=== PATIENT | male | born 1960 | race Caucasian/White ===

== ENCOUNTER 2025-02-08 07:02 | Observation (INO) ==
--- NOTE | 2025-01-04 10:47 | PAT Medication Instructions ---
Medication Instructions Date of Service January 04, 2025 Home Medications albuterol sulfate 90 mcg/actuation aerosol inhaler 1 puff inhalation UD PRN Shortness Of Breath apixaban 5 mg tablet (Eliquis) 5 mg PO BID atorvastatin 80 mg tablet 80 mg PO QAM empagliflozin 25 mg tablet (Jardiance) 25 mg PO QAM fluticasone fur. 100 mcg-umeclid 62.5 mcg-vilant 25 mcg inhalat.powder (Trelegy Ellipta) 1 inh inhalation QAM losartan 25 mg tablet 25 mg PO QAM metformin 500 mg tablet 1,000 mg PO BID montelukast 10 mg tablet 10 mg PO HS ASK your prescriber and surgeon apixaban 5 mg tablet (Eliquis) 5 mg PO BID (From anesthesia perspective, apixaban/Eliquis is requested to be stopped 72 hours/3 days before surgery. Please check if okay with doctor that prescribes this to you) STOP taking 3 days before surgery empagliflozin 25 mg tablet (Jardiance) 25 mg PO QAM DO NOT take the morning of surgery losartan 25 mg tablet 25 mg PO QAM metformin 500 mg tablet 1,000 mg PO BID Take morning of surgery With a small sip of water, OTHERWISE NOTHING TO EAT OR DRINK AFTER MIDNIGHT: albuterol sulfate 90 mcg/actuation aerosol inhaler 1 puff inhalation UD PRN Shortness Of Breath (use if needed; please bring rescue inhaler with you to hospital day of surgery if possible) atorvastatin 80 mg tablet 80 mg PO QAM fluticasone fur. 100 mcg-umeclid 62.5 mcg-vilant 25 mcg inhalat.powder (Trelegy Ellipta) 1 inh inhalation QAM Take evening before surgery albuterol sulfate 90 mcg/actuation aerosol inhaler 1 puff inhalation UD PRN Shortness Of Breath (if needed) metformin 500 mg tablet 1,000 mg PO BID montelukast 10 mg tablet 10 mg PO HS Other Notes If you have any questions please call us at [phone] or [phone] or [phone] or [phone]
--- NOTE | 2025-01-11 13:03 | Anesthesiology Consultation ---
Date of Service January 11, 2025 Assessment & Plan (1) Encounter for pre-operative examination: - Check BSG DOS - Infectious disease screening: Per assessment on 01/11/25- No known recent infectious disease contacts or current infectious disease symptoms. - Outpatient joint assessment: Pt currently scheduled for inpatient pathway. If surgeon requests review for outpatient joint pathway, patient is not a recommended candidate for outpatient joint program from anesthesia standpoint based on available information. - Eliquis instructions: patient made aware that for neuraxial anesthesia, Eliquis needs to be held 72 hours prior to surgery. Patient voiced understanding/will check if okay with prescriber. Chart Review Chart Review: Acceptable Risk for Surgery and Patient seen in Pre Admission Testing Teaching & Discussion Pre-Anesthesia Teaching/Discussion Notes: Instructed NPO after midnight before surgery,except medications with 15 cc of water. Medication instructions provided according to the PAT guidelines. History Surgery Operation Date: 02/08/25 08:50 Proposed Procedures p Left Total Knee Arthroplasty - Cachorro Ac MD Height/Weight Height: 6 ft Weight: 147 kg Allergies Allergy/AdvReac Type Severity Reaction Status Date / Time Cephalosporins Allergy Unknown Skin Verified 01/11/25 09:38 blistering, swelling Medications Home Medications Medication Instructions Recorded Confirmed Last Taken albuterol sulfate 90 mcg/actuation 1 puff inhalation UD PRN Shortness 01/04/25 01/04/25 Unknown aerosol inhaler Of Breath apixaban 5 mg tablet (Eliquis) 5 mg PO BID 01/04/25 01/04/25 Unknown atorvastatin 80 mg tablet 80 mg PO QAM 01/04/25 01/04/25 Unknown empagliflozin 25 mg tablet 25 mg PO QAM 01/04/25 01/04/25 Unknown (Jardiance) fluticasone fur. 100 mcg-umeclid 1 inh inhalation QAM 01/04/25 01/04/25 Unknown 62.5 mcg-vilant 25 mcg inhalat.powder (Trelegy Ellipta) losartan 25 mg tablet 25 mg PO QAM 01/04/25 01/04/25 Unknown metformin 500 mg tablet 1,000 mg PO BID 01/04/25 01/04/25 Unknown montelukast 10 mg tablet 10 mg PO HS 01/04/25 01/04/25 Unknown Past Medical History Medical History Diabetes mellitus, type 2 NIDDM History of COPD History of diverticulitis History of hypertension Hx of deep venous thrombosis RLE DVTs (prior to 1999, ~2009, ~2022) Unknown cause for blood clots per patient Taking Eliquis Hx of hyperlipidemia Hx of sleep apnea Unable to use CPAP Hx pulmonary embolism DVT > PE (~2022) Currently on Eliquis Morbid obesity Exercise / Class Metabolic Activity III < 4 Walking/Shop/Light housework Past Surgical History Surgical History History of colon resection 2/2 to diverticulitis (5+ years) History of total right knee replacement Hx laparoscopic cholecystectomy Hx of anterior cruciate ligament tear reconstruction Right, "years ago" Hx of colonoscopy Past Anesthesia History No Family Hx of Anesthesia Complications and Other (Awareness with Right TKA) History of PONV No Hx of PONV and No Hx of Motion Sickness Social History Smoking Status: Current every day smoker Smoking cigarettes per day: 20 cigs/day Do You Dip or Chew Tobacco: No (Hx, quit years ago) Hx Alcohol Use: Yes alcohol intake frequency: holidays/special occasions only (Very rare use since 2018) Hx Substance Use: Yes substance use type: former substance user, marijuana (Hx, none for a couple years) and crack/cocaine (Couple times 40 years ago) Review of Systems Dyspnea at baseline. Chronic occasional wheezing/"throat clearing"/cough r/t smoking- at baseline. Patient denies chest pain, fever, chills. Physical Exam Vital Signs BP 126/81 P 92 TEMP 97.8 SP02 95%RA RESP 18 Physical Full cervical extension range of motion. Full TMJ range of motion. TMD > 3.5 finger breaths Mallampati Score II Dentition: Several missing teeth, denies chipped/loose teeth Lungs: clear throughout to auscultation Cardiac: regular rate and rhythm, faint systolic murmur, distant heart sounds Spine: normal Carotid arteries: negative bruit Extremities: no LE edema Lab Results Anesthesia Preop Results Results Anesthesia Widget: WBC 12.20 K/ul (4.8-10.8) H 01/11/25 Hgb 17.4 g/dL (14.0-18.0) 01/11/25 Hct 50.8 % (42.0-52.0) 01/11/25 Plt 242 K/uL (130-400) 01/11/25 Na 139 mmol/L (136-145) 01/11/25 K 4.3 mmol/L (3.5-5.1) 01/11/25 Cl 104 mmol/L (98-107) 01/11/25 CO2 28 mmol/L (21-32) 01/11/25 BUN 11 mg/dl (6-23) 01/11/25 Creat 0.72 mg/dl (0.6-1.4) 01/11/25 Glucose Level 148 mg/dl (70-99(Fasting)) H 01/11/25 PT 11.7 Seconds (9.0-12.0) 01/11/25 PTT 31 Seconds (21-31) 01/11/25 INR 1.1 (0.9-1.1) 01/11/25 HA1c 6.9 % (4.5-5.6) H 01/11/25 Blood Type O Positive 01/11/25 Antibody Screen NEGATIVE 01/11/25 Testing Electrocardiogram Date: 01/11/25 NSR at 95bpm. "Normal ECG" Chest X-Ray Date: 01/11/25 FINDINGS: Heart size and pulmonary vasculature are normal. Stable hyperexpanded lungs. No consolidation or pleural effusion seen. IMPRESSION: No acute findings. Echocardiogram Date: 02/07/23 LVEF 60-64%. LV wall motion is normal. LV diastolic function is normal. No significant valvular disease.
--- NOTE | 2025-02-01 07:38 | History & Physical Report ---
Date of Service February 01, 2025 Assessment & Plan (1) Left knee DJD: 64-year-old gentleman with multiple medical comorbidities including obesity, diabetes and history of a DVT in the past now 10 years out from a right knee replacement with advanced left knee arthritis. Failed conservative treatment like to have his left knee fixed. Plan: We are going to proceed with left total knee replacement. The risks met this procedure explained. Informed consent was obtained. Was used Eliquis for DVT prophylaxis and he is already on Eliquis. He do not need to hold that 3 days preop. He is planning on staying in the hospital overnight and likely discharge postoperative day 1. He does live by himself but he is going to have 5 friends that come and stay with him. (2) History of COPD: (3) Hx pulmonary embolism: (4) Hx of deep venous thrombosis: (5) History of hypertension: (6) Hx of hyperlipidemia: (7) Diabetes mellitus, type 2: (8) Morbid obesity: History of Present Illness Chief Complaint: . Left knee pain. Primary Care Provider: Jihan Pack . The patient is a 64-year-old gentleman well-known to me from a previous right knee replacement about 10 years ago. Of the right knee is doing well. Over the past 3 years she developed increased pain discomfort her left knee. Is just been kind of great and [place] and putting up with it. Started to really bother him pretty much every day. Takes oral medicines with minimal relief. He has lost some weight recently but has not really helped his knee pain. Allergies Allergy/AdvReac Type Severity Reaction Status Date / Time Cephalosporins Allergy Unknown Skin Verified 01/11/25 09:38 blistering, swelling Home Medications Medication Instructions Recorded Confirmed Type albuterol sulfate 90 mcg/actuation 1 puff inhalation UD PRN Shortness 01/04/25 01/04/25 History aerosol inhaler Of Breath apixaban 5 mg tablet (Eliquis) 5 mg PO BID 01/04/25 01/04/25 History atorvastatin 80 mg tablet 80 mg PO QAM 01/04/25 01/04/25 History empagliflozin 25 mg tablet 25 mg PO QAM 01/04/25 01/04/25 History (Jardiance) fluticasone fur. 100 mcg-umeclid 1 inh inhalation QAM 01/04/25 01/04/25 History 62.5 mcg-vilant 25 mcg inhalat.powder (Trelegy Ellipta) losartan 25 mg tablet 25 mg PO QAM 01/04/25 01/04/25 History metformin 500 mg tablet 1,000 mg PO BID 01/04/25 01/04/25 History montelukast 10 mg tablet 10 mg PO HS 01/04/25 01/04/25 History Past Med/Surg History Problem List Encounter for pre-operative examination Left knee DJD Medical History Morbid obesity History of diverticulitis Diabetes mellitus, type 2 NIDDM Hx of hyperlipidemia History of hypertension Hx of deep venous thrombosis RLE DVTs (prior to 1999, ~2009, ~2022) Unknown cause for blood clots per patient Taking Eliquis Hx pulmonary embolism DVT > PE (~2022) Currently on Eliquis Hx of sleep apnea Unable to use CPAP History of COPD Surgical History Hx of anterior cruciate ligament tear reconstruction Right, "years ago" History of colon resection 2/2 to diverticulitis (5+ years) Hx laparoscopic cholecystectomy Hx of colonoscopy History of total right knee replacement Social History Smoking Status: Current every day smoker Tobacco Type: Cigarettes Cigarettes Per Day: 20 cigs/day; Second Hand Exposure: No; Do You Dip or Chew Tobacco: No (Hx, quit years ago); Hx Alcohol Use: Yes Hx Substance Use: Yes Preferred Language: Georgian Communication Ability: Effective Canned Food Reconditioning Inspector Required: No Beliefs That Will Affect Care: None Current Living Situation: Alone Feels Safe at Home: Yes Assistive Devices: Glasses Review of Systems All systems reviewed & are unremarkable except as noted in HPI & below. Physical Exam . Physical examination reveals a pleasant somewhat poorly Middle-age male. Examination of the knees reveal patient ambulates independently with a bit of a waddling gait. Examination of the left knee reveals varus alignment to his knee. He is tender over the medial joint line. Range of motion is near full e xtension to 125 degrees of flexion. There is no gross instability. He is got some venous stasis changes distally. Examination of the right knee reveals well-healed incision. Good anatomic alignment to the knee. Range of motion 0-1 25. Constitutional WD/WN, vitals as above Respiratory normal respiratory effort, lungs clear to auscultation Cardiovascular RRR, no murmur, no edema Gastrointestinal (Abdomen) normal bowel sounds, soft, nontender, no hepatosplenomegaly Results & Data Results & Data Laboratory Results . Diagnostic Findings . X-rays of the left knee were reviewed. Shows advanced medial compartment arthritis. Got complete loss of medial joint space. Got [id number] disease. Good subchondral sclerosis. The right knee replaced looks in a good position without problems. PG Care Time/CCT Total # of Minutes Spent Total Time Spent with Patient: Total time spent is greater than 50% in coordination of care (as documented) at patient's floor/unit and/or counseling patient: Coding Level of Care Code None Diagnoses Left knee DJD M17.12 History of COPD Z87.09 Hx pulmonary embolism Z86.711 Hx of deep venous thrombosis Z86.718 History of hypertension Z86.79 Hx of hyperlipidemia Z86.39 Diabetes mellitus, type 2 E11.9 Morbid obesity E66.01
[~2025-02-08 07:02] MED LIST: BUPIVACAINE 0.5 % 5 MG/1 ML PF 10ML VIAL ONE; ROPIVACAINE 0.5% 5 MG/ML 30 ML VIAL ONE; ceFAZolin 3000MG 3,000 MG/72.5 ML BAG IV SCH
[2025-02-08] MEDS: LR 500ML BOLUS, THEN 15ML/HR IV SCH (07:48)
[2025-02-08] MEDS: LR 60ML/HR IV SCH (07:48)
[2025-02-08] MEDS: CeleBREX 200 MG CAP PO SCH (07:49)
[2025-02-08] MEDS: ACETAMINOPHEN 500 MG TAB PO SCH ×3 (07:49→17:21)
[2025-02-08] MEDS: METOCLOPRAMIDE HCL 10 MG TABLET PO SCH (07:49)
[2025-02-08] MEDS: FAMOTIDINE 20 MG TAB PO SCH (07:49)
[2025-02-08] MEDS: dexAMETHasone**PF** 10 MG/ML VIAL IV SCH (07:49)
[2025-02-08] MEDS ORDERED: PROPOFOL IV EMULSION 10 MG/ML 20 ML VIAL IV ONE ×2 (07:56)
[2025-02-08] MEDS ORDERED: LIDOCAINE 2% 2 ML VIAL/AMP(20MG/ML) INFIL ONE ×2 (07:56)
[2025-02-08] MEDS ORDERED: ONDANSETRON INJ 2 MG/ML 2 ML VIAL ONE (07:56)
[2025-02-08] MEDS ORDERED: MIDAZOLAM HCL 1 MG/ML 2ML VIAL ONE (07:57)
[2025-02-08] MEDS ORDERED: ATROPINE SULFATE 0.1 MG/ML 10ML SYR IV PRN (08:25)
[2025-02-08] MEDS ORDERED: ONDANSETRON INJ 2 MG/ML 2 ML VIAL IV PRN ×2 (08:25→11:24)
--- NOTE | 2025-02-08 08:53 | History & Physical Bridge Note ---
Date of Service February 08, 2025 History & Physical Bridge Note I have examined the patient, reviewed the History & Physical and in the interval since the performance of the History & Physical I have noted the following changes of clinical significance: no changes noted
[2025-02-08] MEDS ORDERED: ROCURONIUM BROMIDE 10 MG/ML 5 ML VIAL IV ONE ×2 (09:15→09:55)
[2025-02-08] MEDS ORDERED: KETAMINE HCL 10MG/ML SYR ONE (09:48)
[2025-02-08] MEDS ORDERED: HYDROmorphone INJ 2 MG/ML SYR/VIAL ONE (09:52)
[2025-02-08] MEDS: VANCOMYCIN HCL 2,000 MG in SODIUM CHLORIDE 0.9% 500 ML IV SCH (10:01)
[2025-02-08] MEDS: ORTHO JOINT ANESTHETIC ONE (10:02)
[2025-02-08] MEDS: VANCOMYCIN HCL 1000MG/20ML VIAL ONE (10:40)
[2025-02-08] MEDS: ROPIV 0.5% 246mg, Ketorolac 30mg, EPINEPHrine 0.5mg in NSS INFIL SCH (10:48)
[2025-02-08] MEDS ORDERED: SUGAMMADEX SODIUM 200 MG/2 ML VIAL IV ONE (11:22)
[2025-02-08] MEDS ORDERED: PHARMACY GLYCEMIC MGMT CONSULT PRN (11:24)
[2025-02-08] MEDS ORDERED: ALUMINUM/MAGNESIUM SUSP 30 ML UDC PO PRN (11:24)
[2025-02-08] MEDS ORDERED: GLUCOSE 40% GEL 15 GM TUBE PO PRN (11:24)
[2025-02-08] MEDS ORDERED: CARBOHYDRATES FOR HYPOGLYCEMIA PO PRN (11:24)
[2025-02-08] MEDS ORDERED: METOCLOPRAMIDE HCL INJ 5 MG/ML 2 ML VIAL IV PRN (11:24)
[2025-02-08] MEDS ORDERED: TAMSULOSIN HCL 0.4 MG CAP PO PRN (11:24)
[2025-02-08] MEDS ORDERED: MAGNESIUM HYDROXIDE SUSP 30 ML UDC PO PRN (11:24)
[2025-02-08] MEDS ORDERED: NALOXONE HCL 0.4 MG/1 ML VIAL/CARP IV PRN (11:24)
[2025-02-08] MEDS ORDERED: DEXTROSE 50% 50 ML SYRINGE IV PRN (11:24)
[2025-02-08] MEDS ORDERED: GLUCOSE 10 TAB/TUBE PO PRN (11:24)
[2025-02-08] MEDS ORDERED: GLUCAGON FOR INJ 1 MG VIAL SQ PRN (11:24)
--- NOTE | 2025-02-08 11:37 | Operative Report ---
PG Post Operative Report Pre & Post Diagnosis Operation Date: 02/08/25 08:50 Pre-Op Diagnosis: Left Knee Degenerative Joint Disease Post-Op Diagnosis: Left Knee Degenerative Joint Disease I identified the patient and participated in the time-out.: Yes Procedure Operation Date: 02/08/25 08:50 Actual Procedures p Left Total Knee Arthroplasty(Left) - Cachorro Ac MD Surgeon Cachorro Ac MD Counselor Aide Roel Valladares PA-C Estimated Blood Loss 50 Findings Consistent with Post-Op Diagnosis Specimens Left knee sent for pathology. Anesthesia Type General Regional Complications none Disposition Accompanied Patient To Recovery: No Indications The patient is a 64-year-old gentleman with a long history of knee problems. He had his right knee replaced 10 years ago. Over the past several years she has developed increased pain discomfort in the left knee. Failed all conservative measures. He elected proceed with left total knee arthroplasty. Description of Procedure Operative implants consist of: 1 Biomet Vanguard size 72.5 left posterior stabilized femoral component. 2. Biomet size 83 tibial tray. 3. 12 mm posterior stabilized polyethylene insert. 4. 34 x 8-1/2 all poly patella. The patient was taken to the operating, identified, placed on the operating table in the supine position. All contact areas were appropriately padded. IV antibiotics were provided by anesthesia team. Patient was given vancomycin due to his apparent cephalosporin allergy. A spinal anesthetic was attempted in the holding area but unsuccessful. An adductor canal block was provided. A general anesthetic was then implemented. A left thigh tourniquet was then placed. The left lower EXTR remedy was then prepped and draped in usual sterile fashion. The left leg was elevated and exsanguinated with use of an Esmarch and tourniquet placed at 300 mmHg. An anterior approach of the left knee was then performed to longitudinal incision centered over the patella. Sharp dissection was carried through subcutaneous tissue down of the extensor mechanism. A medial parapatellar arthrotomy incision was made. Some subperiosteal dissection was carried out medially. The fat pad was resected beneath patella tendon. The lateral patellofemoral ligament was released. Patella subluxate laterally and knee was flexed. The osteophytes taken off distal femur. The ACL and PCL were then released from the distal femur and the tibia subluxate anteriorly. The external tibial LYMErix then placed on the interface the tibia and adjusted 14 mm medially. The proximal tibial cut was made to remove about a millimeter of bone from most deficient aspect medial tibial plateau. Some osteophytes taken off medially. The tibia was sized to a size 83. Attention drawn to the femur. The distal femur was then with a sharp drill. Intramedullary canal was suction. A left 6 degree valgus cutting guide was placed. The distal femoral cutting block was pinned in place. Distal femoral cut was made take an additional 3 mm of bone off distal femur. The femur was then sized to a size 72.5. The AP cutting block was pinned parallel to the epicondylar axis which was 5 degrees of external rotation. The anterior cut, anterior chamfer, posterior cut, posterior chamfer cuts were made. The box cutting guide was placed and adjusted slightly lateral and the box cut was made. The knee was flexed. The remnants of the medial and lateral menisci were excised. The osteophytes were taken off the posterior aspect the femur. A trial femoral component was placed. The tibial tray was pinned in Shannon external rotation and the drill and stem punch used great defect in proximal tibia for the tibial tray. The knee was then trialed and the 12 mm insert fit most appropriately. Attention drawn the patella. The patella was cleaned of all soft tissues. Patella thickness measured 25 mm in thickness cut down to 15. Was sized to a size 34 patella. The lug holes were drilled for 34 patella. The lateral osteophytes removed. Patella button was placed. Knee was taken through range of motion patella tracked nicely with no thumbs test. Attention then drawn to placement permanent components. All trial components were removed. Bone plug was placed into distal femur limit blood loss. A double batch [place] G cement was mixed. I did add an additional gram of vancomycin to the cement due to this patient's multiple medical comorbidities including obesity, diabetes, venous stasis disease. A Biomet Vanguard size 72.5 left Po stabilized femoral component, size 83 tibial tray, 12 mm pro stabilized polyethylene insert, and a 34 x 8-1/2 all poly patella were then cemented in place. The knee was brought into full extension till cement hardened. Final cement check was then performed. The pericapsular tissues were injected with a total of 100 cc of Ortho mix. The patient did receive 1 g tranexamic acid. The tourniquet was then let down for final tourniquet time of 64 minutes. Hemostasis assured with electrocautery. Extensor Meclomen then closed with combination 1 PDS suture #1 Vicryl suture in a [id number] fashion. Extensor Meclomen checked found to be intact through subcutaneous tissue then closed with 2 Dexon suture in a buried interrupted fashion skin was closed skin rossy. Leg was then cleaned and dried and a sterile dressing with Xeroform, 4 fours, sterile ABD pad, sterile cast padding, Toño bandage were applied. The patient then transferred to the recovery room in stable condition. The patient tolerated the procedure well and there were no complications. I attest to the content of the Intraoperative Record and any orders documented therein. Any exceptions are noted below.
[2025-02-08] MEDS ORDERED: DexMEDEtomidine HCL IV 100 MCG/ML VIAL IV ONE (11:46)
--- NOTE | 2025-02-08 12:40 | Pharmacy Report ---
Pharmacy Glycemic Short Note 2 - Date of Service February 08, 2025 - Glycemic Short BSG Results (Last 24 hours): 02/08/25 02/08/25 07:23 11:58 POC Glucose 147 H 201 H OUTPATIENT ANTIDIABETIC REGIMEN: * jardiance 25 mg qam, metformin 1 gm bid ASSESSMENT: * 64 year old s/p surgery, POD 0 - pharmacy consulted for glycemic management. Patient type 2 diabetic managed on oral agents outpatient. Received IV steroi ds preoperatively, postop bSG >200 - Will give Lantus 0.2 units/kg x 1 now and start novolog SSI. PLAN FOR INPATIENT GLYCEMIC CONTROL: * Hold outpatient oral diabetes medications * Basal insulin * Lantus 30 units x 1 * Lantus 0-10 units HS * Bolus insulin * NovoLog per scale ACHS or Q6hrs while NPO * Goal Range: Low 110 mg/dL - High 140 mg/dL * Correction Factor: 15 mg/dL/unit * Nutritional / Prandial insulin per carb ratio of 1 unit per 5 grams CHO consumed
--- NOTE | 2025-02-08 13:14 | XRay Report ---
XR knee LT 1 or 2V routine CLINICAL HISTORY: Postoperative evaluation. COMPARISON: Left knee radiographs November 30, 2024. FINDINGS: Alignment of the total left knee arthroplasty is anatomic. There is no periprosthetic frac ture or unexpected radiopaque foreign body. There are skin rossy. IMPRESSION: Expected findings following total left knee arthroplasty. ACT 112: Negative or not required by law. Electronically signed by: Hair Parsons M.D. 02/08/2025 1:13 PM
--- NOTE | 2025-02-08 15:12 | Anesthesiology Progress Note ---
Date of Service February 08, 2025 Anesthesia Post Procedure Vital Signs Vital Signs: Temp Pulse Pulse Pulse Resp BP BP 02/08/25 14:50 91 H 15 108/61 02/08/25 14:40 94 H 18 112/62 02/08/25 14:30 93 H 14 124/76 02/08/25 14:26 96 H 16 02/08/25 14:20 95 H 16 115/70 02/08/25 14:10 94 H 16 113/62 02/08/25 14:00 95 H 16 128/70 02/08/25 13:50 99 H 16 139/83 02/08/25 13:40 100 H 17 148/75 H 02/08/25 13:30 36.7 C 99 H 16 133/82 02/08/25 13:20 101 H 16 137/70 02/08/25 13:10 103 H 15 134/82 02/08/25 13:00 102 H 17 121/83 02/08/25 12:50 98 H 17 119/67 02/08/25 12:40 103 H 15 142/71 H 02/08/25 12:30 101 H 18 131/71 02/08/25 12:20 101 H 21 130/67 02/08/25 12:10 101 H 16 122/69 02/08/25 12:00 101 H 21 122/75 02/08/25 11:50 101 H 15 146/83 H 02/08/25 11:42 36.7 C 112 H 20 168/87 H 02/08/25 07:19 02/08/25 07:19 36.6 C 90 20 125/85 Pulse Ox O2 Del Method O2 Flow Rate FiO2 02/08/25 14:50 90 BiPAP 30 02/08/25 14:40 90 BiPAP 30 02/08/25 14:30 90 BiPAP 30 02/08/25 14:26 92 30 02/08/25 14:20 91 BiPAP 30 02/08/25 14:10 92 BiPAP 30 02/08/25 14:00 91 Nasal Cannula 4 02/08/25 13:50 90 Nasal Cannula 4 02/08/25 13:40 90 Nasal Cannula 4 02/08/25 13:30 90 Nasal Cannula 4 02/08/25 13:20 93 Oxymask 8 02/08/25 13:10 92 Oxymask 8 02/08/25 13:00 93 Oxymask 8 02/08/25 12:50 92 Oxymask 8 02/08/25 12:40 92 Oxymask 5 02/08/25 12:30 92 Oxymask 5 02/08/25 12:20 95 Oxymask 10 02/08/25 12:10 92 Oxymask 10 02/08/25 12:00 92 Oxymask 10 02/08/25 11:50 93 Oxymask 10 02/08/25 11:42 92 Oxymask 10 02/08/25 07:19 Room Air 02/08/25 07:19 92 Room Air Pain Intensity Left Knee: Pain Intensity: 0 Transfer of Care Handoff Completed per policy Notes Mental Status: alert / awake / arousable Patient Amnestic to Procedure: Yes Nausea / Vomiting: adequately controlled Pain: adequately controlled Airway Patency, RR, SpO2: see Notes below BP & HR: stable & adequate Hydration State: stable & adequate Anesthetic Complications: no major complications apparent and Pt Satisfied with anesthetic care Notes: pt requiring bipap in PACU to maintain adequate O2 sat. Minimal supplemental O2 required. plans to continue as inpatient
[2025-02-08] MEDS: ALBUT/IPRATROP 3MG/0.5MG NEB 3 ML VIAL ONE (15:41)
[2025-02-08] MEDS: SODIUM CHLORIDE 0.9% 1,000 ML IV SCH (16:34)
[2025-02-08] MEDS ORDERED: ALBUTEROL HFA 8 GM INHALER INH PRN (16:43)
[2025-02-08] MEDS: INSULIN ASPART PER UNIT CHARGE SC SCH (16:49)
[2025-02-08] MEDS: KETOROLAC TROMETHAMINE 15 MG/ML VIAL IV SCH (16:50)
[2025-02-08] MEDS: LANTUS PER UNIT CHARGE SC ONE (16:50)
[2025-02-08] MEDS: TRANEXAMIC ACID / 0.7% NACL 1,000 MG/100 ML BAG IV SCH (17:22)
[2025-02-08] MEDS: ALBUT/IPRATROP 3MG/0.5MG NEB 3 ML VIAL NEB STA (17:27)
[2025-02-08] MEDS: ASCORBIC ACID 500 MG TAB PO SCH (17:41)
--- NOTE | 2025-02-08 18:04 | Hospitalist Consultation ---
Date of Consultation February 08, 2025 Assessment & Plan (1) Left knee DJD: s/p Left Total Knee Arthroplasty - tolerated procedure well pain management, DVT ppx, PT/OT per surgeon Post-op hypoxia Hx of COPD/ asthma, hx of tobacco abuse - at home on Trelegy inh, albuterol, duonebs prn, montelukast - cont. while inpt - currently not in exacerbation, however required bipap in pacu, currently on 3L of suppl. O2 - received duoneb post-op - encourage incentive spirometer, try to wean off O2 DAVON pt not using cpap at home - required bipap in PACU, cont. to closely monitor, recommend cpap/bipap HS Hx of DVT/PE - on Eliquis - will defer anticoagulation to surgeon DM type 2 A1c 8.3% in July 2024 - at home on metformin, Jardiance - currently utilizing insulin while inpt, glycemic pharmacy following HTN/HLD - at home on losartan, atorvastatin - for now, hold losartan, monitor BP, re-assess tmrw AM Morbid obesity - BMI 43 - per outpt chart review, pt has been losing weight - cont. counselling and outpt follow up History of Present Illness Reason for Consultation: Post-op med management Requesting Physician: Dr. Ac Attending Physician: Cachorro Ac MD History of Present Illness Pt is a 64 yo M w/ hx of DM type 2, HTN, HLD, morbid obesity (BMI 43), asthma/ COPD, hx of tobacco abuse, hx of DVT/PE on Eliquis who is s/p Left Total Knee Arthroplasty by Dr. Ac today. Per anesthesia report pt required bipap in PACU, currently on suppl. O2 3L via [place]. He is sitting up in bed in [facility], pt's daughter present at the bedside. Pt is awake, alert, answers appropriately. Denies any significant pain, able to move LEs. Denies any chest pain, shortness of breath, cough. Denies any fever, chills. Denies abd. pain, n/v. He is a smoker and would like a nicotine patch - will order. Allergies Allergy/AdvReac Type Severity Reaction Status Date / Time Cephalosporins Allergy Unknown Skin Verified 02/08/25 07:06 blistering, swelling Home Medications Medication Instructions Recorded Confirmed Type albuterol sulfate 90 mcg/actuation 1 puff inhalation UD PRN Shortness 11/14/25 12/19/25 History aerosol inhaler Of Breath apixaban 5 mg tablet (Eliquis) 5 mg PO BID 01/04/25 02/08/25 History atorvastatin 80 mg tablet 80 mg PO QAM 01/04/25 02/08/25 History empagliflozin 25 mg tablet 25 mg PO QAM 01/04/25 02/08/25 History (Jardiance) fluticasone fur. 100 mcg-umeclid 1 inh inhalation QAM 01/04/25 02/08/25 History 62.5 mcg-vilant 25 mcg inhalat.powder (Trelegy Ellipta) losartan 25 mg tablet 25 mg PO QAM 01/04/25 02/08/25 History metformin 500 mg tablet 1,000 mg PO BID 01/04/25 02/08/25 History montelukast 10 mg tablet 10 mg PO HS 01/04/25 02/08/25 History acetaminophen 500 mg tablet 1,000 mg (2 x 500 mg) PO TID pain 02/02/25 02/08/25 Rx (Tylenol Extra Strength) 30 days #180 tabs cefadroxil 500 mg capsule 500 mg PO BID 7 days #14 caps 02/02/25 02/08/25 Rx ondansetron 4 mg disintegrating 4 mg PO Q8 PRN nausea #20 tabs 02/02/25 02/08/25 Rx tablet oxycodone 5 mg tablet 5 - 10 mg (1 - 2 x 5 mg) PO Q6 PRN 02/02/25 02/08/25 Rx pain #40 tabs sennosides 8.6 mg tablet (Senokot) 8.6 mg PO BID prevent constipation 02/02/25 02/08/25 Rx 14 days #28 tabs tamsulosin 0.4 mg capsule 0.4 mg PO DAILY #7 caps 02/02/25 02/08/25 Rx Patient History Medical History Morbid obesity History of diverticulitis Diabetes mellitus, type 2 NIDDM Hx of hyperlipidemia History of hypertension Hx of deep venous thrombosis RLE DVTs (prior to 1999, ~2009, ~2022) Unknown cause for blood clots per patient Taking Eliquis Hx pulmonary embolism DVT > PE (~2022) Currently on Eliquis Hx of sleep apnea Unable to use CPAP History of COPD Surgical History Hx of anterior cruciate ligament tear reconstruction Right, "years ago" History of colon resection 2/2 to diverticulitis (5+ years) Hx laparoscopic cholecystectomy Hx of colonoscopy History of total right knee replacement Social History Smoking Status: Current every day smoker Tobacco Type: Cigarettes Cigarettes Per Day: 20 cigs/day; Second Hand Exposure: No; Do You Dip or Chew Tobacco: No (Hx, quit years ago); Tobacco Cessation Education Requested by Patient: No Hx Alcohol Use: Yes Hx Substance Use: Yes Preferred Language: Zambian Communication Ability: Effective 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 effort, decreased breath sounds, no wheezing noted, on suppl. O2 Cardiovascular: RRR, no murmur, no edema Chest (Breasts): Chest: normal inspection of chest Gastrointestinal (Abdomen): normal bowel sounds, soft, nontender, no hepatosplenomegaly Musculoskeletal: moves extremities, LLE in surg. dressings Skin: no rashes, warm and dry Neurologic: PERRL, EOMI, accommodation nl, no face palsy, no dysarthria Psychiatric: A+Ox3, euthymic affect Results & Data Results & Data Vital Signs (Past 12 Hours) Vital Signs Temp Pulse Pulse Pulse Resp BP BP 02/08/25 17:28 95 H 18 02/08/25 16:30 36.8 C 94 H 18 118/75 02/08/25 16:00 88 16 124/71 02/08/25 15:50 93 H 18 108/75 02/08/25 15:40 90 14 118/74 02/08/25 15:30 89 12 124/68 02/08/25 15:20 90 13 113/73 02/08/25 15:10 89 16 118/67 02/08/25 15:00 88 15 111/75 02/08/25 14:50 91 H 15 108/61 02/08/25 14:40 94 H 18 112/62 02/08/25 14:30 93 H 14 124/76 02/08/25 14:26 96 H 16 02/08/25 14:20 95 H 16 115/70 02/08/25 14:10 94 H 16 113/62 02/08/25 14:00 95 H 16 128/70 02/08/25 13:50 99 H 16 139/83 02/08/25 13:40 100 H 17 148/75 H 02/08/25 13:30 36.7 C 99 H 16 133/82 02/08/25 13:20 101 H 16 137/70 02/08/25 13:10 103 H 15 134/82 02/08/25 13:00 102 H 17 121/83 02/08/25 12:50 98 H 17 119/67 02/08/25 12:40 103 H 15 142/71 H 02/08/25 12:30 101 H 18 131/71 02/08/25 12:20 101 H 21 130/67 02/08/25 12:10 101 H 16 122/69 02/08/25 12:00 101 H 21 122/75 02/08/25 11:50 101 H 15 146/83 H 02/08/25 11:42 36.7 C 112 H 20 168/87 H 02/08/25 07:19 02/08/25 07:19 36.6 C 90 20 125/85 Pulse Ox O2 Del Method O2 Flow Rate FiO2 02/08/25 17:28 96 Room Air 3 02/08/25 16:30 93 Nasal Cannula 3 02/08/25 16:00 91 Nasal Cannula 3 02/08/25 15:50 91 Nasal Cannula 3 02/08/25 15:40 95 BiPAP 30 02/08/25 15:30 91 BiPAP 30 02/08/25 15:20 90 BiPAP 30 02/08/25 15:10 92 BiPAP 30 02/08/25 15:00 92 BiPAP 30 02/08/25 14:50 90 BiPAP 30 02/08/25 14:40 90 BiPAP 30 02/08/25 14:30 90 BiPAP 30 02/08/25 14:26 92 30 02/08/25 14:20 91 BiPAP 30 02/08/25 14:10 92 BiPAP 30 02/08/25 14:00 91 Nasal Cannula 4 02/08/25 13:50 90 Nasal Cannula 4 02/08/25 13:40 90 Nasal Cannula 4 02/08/25 13:30 90 Nasal Cannula 4 02/08/25 13:20 93 Oxymask 8 02/08/25 13:10 92 Oxymask 8 02/08/25 13:00 93 Oxymask 8 02/08/25 12:50 92 Oxymask 8 02/08/25 12:40 92 Oxymask 5 02/08/25 12:30 92 Oxymask 5 02/08/25 12:20 95 Oxymask 10 02/08/25 12:10 92 Oxymask 10 02/08/25 12:00 92 Oxymask 10 02/08/25 11:50 93 Oxymask 10 02/08/25 11:42 92 Oxymask 10 02/08/25 07:19 Room Air 02/08/25 07:19 92 Room Air Laboratory Results 02/08/25 02/08/25 02/08/25 Range/Units 16:35 15:24 11:58 POC Glucose 174 H 190 H 201 H (70-99) mg/dl 02/08/25 Range/Units 07:23 POC Glucose 147 H (70-99) mg/dl Medications Administered Current Inpatient Medications Acetaminophen (Acetaminophen 500 Mg Tab) 1,000 mg PO TID [facility] Stop: 03/10/25 16:42 Last Admin: 02/08/25 17:21 Dose: 1,000 mg Al Hydrox/Mg Hydrox/Simethicone (Aluminum/Magnesium Susp 30 Ml Udc) 15 ml PO Q4H PRN PRN Reason: Heartburn Stop: 03/10/25 11:23 Albuterol (Albuterol Hfa 8 Gm Inhaler) 1 puffs INH Q4H PRN PRN Reason: Shortness Of Breath Stop: 03/10/25 16:42 Apixaban (Apixaban 2.5 Mg Tab) 2.5 mg PO Q12H [facility] Stop: 03/11/25 11:59 Ascorbic Acid (Ascorbic Acid 500 Mg Tab) 500 mg PO BIDM [facility] Stop: 03/10/25 16:59 Last Admin: 02/08/25 17:41 Dose: 500 mg Atorvastatin Calcium (Atorvastatin 40 Mg Tab) 80 mg PO QAM [facility] Stop: 03/11/25 08:59 Bisacodyl (Bisacodyl 10 Mg Supp) [address] DAILY PRN PRN Reason: Constipation Stop: 03/10/25 11:23 Dextrose (Dextrose 50% 50 Ml Syringe) 25 - 50 ml IV UD PRN; Protocol PRN Reason: Hypoglycemia Protocol Stop: 03/10/25 11:23 Docusate Sodium (Docusate Sodium 100 Mg Cap) 100 mg PO BID [facility] Stop: 03/10/25 20:59 Fluticasone Furoate (Fluticasone Furoate 100mcg 14 Puffs/Inhaler) 1 puffs INH QAM [facility] Stop: 03/11/25 08:59 Glucagon (Glucagon For Inj 1 Mg Vial) 1 mg SQ UD PRN; Protocol PRN Reason: Hypoglycemia Protocol Stop: 03/10/25 11:23 Glucose (Glucose 40% Gel 15 Gm Tube) 15 - 30 gm PO UD PRN; Protocol PRN Reason: Hypoglycemia Protocol Stop: 03/10/25 11:23 Glucose (Glucose 10 Tab/Tube) 4 - 8 tab PO UD PRN; Protocol PRN Reason: Hypoglycemia Protocol Stop: 03/10/25 11:23 Hydromorphone HCl (Hydromorphone Inj 0.5 Mg/0.5 Ml Syr) 0.5 mg IV Q4H PRN PRN Reason: Pain or Pre PT Stop: 02/22/25 11:23 Lactated Ringer's (Lr) 1,000 mls @ 60 mls/hr IV .[id number] [facility] Stop: 02/08/25 22:39 Last Admin: 02/08/25 07:48 Dose: Not Given Sodium Chloride (Nss) 1,000 mls @ 100 mls/hr IV .Q10H [facility] Stop: 02/09/25 06:00 Last Admin: 02/08/25 16:34 Dose: 100 mls/hr Dexamethasone 10 mg/ Syringe 2.5 mls @ 1 mls/min IV TODAY@08 [facility] Stop: 02/09/25 08:03 Insulin Aspart (Insulin Aspart Per Unit Charge) 0 units SC [facility] Stop: 03/10/25 11:59 Last Admin: 02/08/25 17:39 Dose: 6 units Insulin Glargine (Lantus Per Unit Charge) 0 units SC [facility]; Protocol Stop: 02/08/25 23:59 Ketorolac Tromethamine (Ketorolac Tromethamine 15 Mg/Ml Vial) 15 mg IV Q6H [facility] Stop: 02/09/25 06:01 Last Admin: 02/08/25 17:22 Dose: 15 mg Losartan Potassium (Losartan Potassium 25 Mg Tab) [facility] Stop: 03/11/25 08:59 Magnesium Hydroxide (Magnesium Hydroxide Susp 30 Ml Udc) 30 ml PO Q6H PRN PRN Reason: Constipation Stop: 03/10/25 11:23 Metoclopramide HCl (Metoclopramide Hcl Inj 5 Mg/Ml 2 Ml Vial) 10 mg IV Q6H PRN PRN Reason: Nausea And Vomiting Stop: 03/10/25 11:23 Miscellaneous (Carbohydrates For Hypoglycemia ) 15 - 30 gm PO UD PRN PRN Reason: Hypoglycemia Protocol Stop: 03/10/25 11:23 Miscellaneous Information (Pharmacy Glycemic Mgmt Consult) 1 each N/A UD PRN PRN Reason: Consult Stop: 03/10/25 11:23 Montelukast Sodium (Montelukast Sodium 10 Mg Tablet) 10 mg PO [facility] Stop: 03/10/25 20:59 Multivitamins (Multivitamin Tab) [address] [facility] Stop: 03/11/25 08:59 Naloxone HCl (Naloxone Hcl 0.4 Mg/1 Ml Vial/Carp) 0.1 mg IV Q5M PRN PRN Reason: Oversedation/Resp Depression Stop: 03/10/25 11:23 Ondansetron HCl (Ondansetron Inj 2 Mg/Ml 2 Ml Vial) 4 mg IV Q6H PRN PRN Reason: Nausea And Vomiting Stop: 03/10/25 11:23 Oxycodone HCl (Oxycodone Hcl Ir 5 Mg Tab (Immediate Release)) 5 - 10 mg PO Q4H PRN PRN Reason: Pain or Pre PT Stop: 02/22/25 11:23 Sennosides (Senna 8.6 Mg Tab) 17.2 mg PO [facility] Stop: 03/10/25 20:59 Tamsulosin HCl (Tamsulosin Hcl 0.4 Mg Cap) 0.4 mg PO DAILY [facility] Stop: 03/11/25 08:59 Umeclidinium/Vilanterol (Umeclidinium/Vilanterol 62.5/25mcg 7 Puffs/Inhaler) 1 puffs INH DAILY [facility] Stop: 03/11/25 08:59
[2025-02-08] MEDS ORDERED: ALBUT/IPRATROP 3MG/0.5MG NEB 3 ML VIAL NEB PRN (18:11)
[2025-02-08] MEDS ORDERED: SENNA 8.6 MG TAB PO SCH (21:00)
[2025-02-08] MEDS: SENNA 8.6 MG TAB PO SCH (21:17)
[2025-02-08] MEDS: DOCUSATE SODIUM 100 MG CAP PO SCH (21:17)
[2025-02-08] MEDS: LANTUS PER UNIT CHARGE SC SCH (21:18)
[2025-02-08] MEDS: NICOTINE 14 MG/24 HR PATCH TD SCH (21:22)
[2025-02-08] MEDS: MONTELUKAST SODIUM 10 MG TABLET PO SCH (23:11)
[2025-02-09] MEDS: INSULIN ASPART PER UNIT CHARGE SC SCH (03:44)
[2025-02-09 07:32] LABS: Hematocrit (blood only) 44.8 % (42.0-52.0); Hemoglobin 14.8 g/dL (14.0-18.0); Mean Corpuscular Hemoglobin 31.6 pg (25.0-34.0); Mean Corpuscular Volume 95.7 fL (80.0-100.0); Platelet Count 203 K/uL (130-400); RDW Standard Deviation 50.5 fL (36.4-46.3); Red Blood Count 4.68 M/uL (4.70-6.10); White Blood Count 14.74 K/ul (4.8-10.8)
[2025-02-09 07:52] LABS: Anion Gap 5.0 (3-11); Blood Urea Nitrogen 18.0 mg/dl (6-23); Calcium 9.1 mg/dl (8.6-10.3); Carbon Dioxide 27.0 mmol/L (21-32); Chloride 106.0 mmol/L (98-107); Creatinine Clr Calc Pharmacy 145.8 ml/min; Glucose 174.0 mg/dl (70-99(Fasting)); Magnesium 2.3 mg/dl (1.7-2.4); Potassium 4.4 mmol/L (3.5-5.1); Sodium 138.0 mmol/L (136-145)
--- NOTE | 2025-02-09 08:06 | Orthopedic Progress Note ---
Date of Service February 09, 2025 Assessment & Plan (1) Status post left knee replacement: Plan: 64-year-old gentleman with multiple medical comorbidities including diabetes, history of DVT/PE in the past, morbid obesity, chronic smoker now postop day 1 from left knee replacement. He was initially bit hypoxic but asymptomatic. This could be likely related to her multiple issues including multiple medical and respiratory issues along with some mild superimposed fat emboli. He is asymptomatic. Pains controlled. He is neurologically intact. Plan: 1. DVT prophylaxis including thigh-high teds, SCDs, and back on Eliquis today. Will start him out of prophylactic dose today and then back to his regular dose tomorrow #2 PT OT. Weight-bear as tolerated left total knee protocol. 3. Pain controlled. Doing okay with current pain regimen. 4. Medical management. Medical management as per the medicine service. 5. Disposition. He is open to be discharged to home with some home health. Will see how therapy goes today. (2) Hx of deep venous thrombosis: (3) Hx of sleep apnea: (4) History of COPD: (5) Hx of hyperlipidemia: (6) History of diverticulitis: (7) Morbid obesity: (8) Diabetes mellitus, type 2: Admission and Anticipated Discharge Date Admission Date: February 08, 2025 Subjective 64-year-old gentleman with multiple medical comorbidities postop day 1 from left knee replacement. He has been placed in a PCU due to some postoperative hypoxia. He denies any symptoms. His pain is controlled. No chest pain or shortness of breath. Not feeling dizzy or lightheaded. Very comfortable. Physical Exam Physical Exam: Physical today shows a pleasant middle-age male. Sitting up in bed and eating breakfast. He looks completely comfortable. He does have some supplemental oxygen in place. Examination left leg reveals the dressing be clean dry and intact. Can dorsiflex and plantarflex his foot appropriately. He can do a pretty good straight leg raise. Results & Data Vital Signs (Past 12 Hours) Vital Signs Temp Pulse Pulse Resp BP Pulse Ox O2 Del Method 02/09/25 07:52 36.4 C L 93 H 20 105/68 92 Nasal Cannula 02/09/25 02:50 36.8 C 93 H 20 107/69 92 Nasal Cannula 02/08/25 22:27 36.8 C 80 20 112/65 92 Nasal Cannula 02/08/25 21:59 90 O2 Flow Rate 02/09/25 07:52 2 02/09/25 02:50 2 02/08/25 22:27 3 02/08/25 21:59 Laboratory Results Hemoglobin is 14.8. Hematocrit 44.8 electrolytes are stable
[2025-02-09] MEDS: TAMSULOSIN HCL 0.4 MG CAP PO SCH (08:08)
[2025-02-09] MEDS: ATORVASTATIN 40 MG TAB PO SCH (08:08)
[2025-02-09] MEDS: dexAMETHasone 10 MG in SYRINGE 0 ML IV SCH (08:09)
[2025-02-09] MEDS: MULTIVITAMIN TAB PO SCH (08:09)
[2025-02-09] MEDS: REMOVE NICODERM PATCH SCH (08:09)
[2025-02-09] MEDS: UMECLIDINIUM/VILANTEROL 62.5/25MCG 7 PUFFS/INHALER INH SCH (08:09)
[2025-02-09] MEDS: FLUTICASONE FUROATE 100MCG 14 PUFFS/INHALER INH SCH (08:35)
--- NOTE | 2025-02-09 08:35 | Hospitalist Progress Note ---
Date of Service February 09, 2025 Assessment & Plan (1) Left knee DJD: Plan: s/p Left Total Knee Arthroplasty - tolerated procedure well pain management, DVT ppx, PT/OT per surgeon - pt started on apixaban Post-op hypoxia Hx of COPD/ asthma, hx of tobacco abuse - at home on Trelegy inh, albuterol, duonebs prn, montelukast - cont. while inpt - currently not in exacerbation, however required bipap in pacu, currently on RA saturating 92%, was on 2L this AM - received duoneb post-op - encourage incentive spirometer, try to wean off O2 DAVON pt not using cpap at home - required bipap in PACU, cont. to closely monitor, recommend cpap/bipap HS Hx of DVT/PE - on Eliquis - now resumed - will defer anticoagulation to surgeon DM type 2 A1c 8.3% in July 2024 - at home on metformin, Jardiance - currently utilizing insulin while inpt, glycemic pharmacy following HTN/HLD - at home on losartan, atorvastatin - for now, hold losartan, monitor BP, re-assess daily Morbid obesity - BMI 43 - per outpt chart review, pt has been losing weight - cont. counselling and outpt follow up Admission and Anticipated Discharge Date Admission Date: February 08, 2025 Subjective Pt seen in follow up, med consult for med co-management Pt s/p left TKA, hypoxic after surgery Pt has hx of COPD, current smoker This morning sitting up in bed in NAD, currently on RA saturating 92%. PT present at the bedside and pt just about to start PT eval. Denies any abd. pain, n/v. Denies any chest pain or shortness of breath. Denies leg pain. Review of Systems Review of Systems: All systems reviewed & are unremarkable except as noted in Subjective Physical Exam Physical Exam: Constitutional: obese M in NAD Eyes: PERRL, conjunctiva e normal, anicteri c sclerae ENMT: external ear and n ose normal Neck: supple Respiratory: normal resp. effo rt, minimal exp.wh eezing noted, on R A Cardiovascular: RRR, no murmur, no edema Chest (Breasts): Chest: normal insp ection of chest Gastrointestinal ( Abdomen): normal bowel sound s, soft, nontender Musculoskeletal: moves extremities , LLE in surg. kahlil ssings Skin: no rashes, warm an d dry Neurologic: PERRL, EOMI, accom modation, no face palsy, no dysarthr ia, moves extremit ies Psychiatric: A+Ox3, euthymic af fect Results & Data Results & Data Vital Signs (Past 12 Hours) Vital Signs Temp Pulse Pulse Resp BP Pulse Ox O2 Del Method 02/09/25 07:52 36.4 C L 93 H 20 105/68 92 Nasal Cannula 02/09/25 02:50 36.8 C 93 H 20 107/69 92 Nasal Cannula 02/08/25 22:27 36.8 C 80 20 112/65 92 Nasal Cannula 02/08/25 21:59 90 O2 Flow Rate 02/09/25 07:52 2 02/09/25 02:50 2 02/08/25 22:27 3 02/08/25 21:59 Laboratory Results 02/09/25 02/09/25 02/09/25 Range/Units 07:24 06:32 03:29 WBC 14.74 H (4.8-10.8) K/ul RBC 4.68 L (4.70-6.10) M/uL Hgb 14.8 (14.0-18.0) g/dL Hct 44.8 (42.0-52.0) % MCV 95.7 (80.0-100.0) fL MCH 31.6 (25.0-34.0) pg MCHC 33.0 (32.0-36.0) g/dL RDW Std Deviation 50.5 H (36.4-46.3) fL RDW Coeff of Antolin 14.5 (11.5-14.5) % Plt Count 203 (130-400) K/uL MPV 9.0 L (9.4-12.4) fL Sodium 138 (136-145) mmol/L Potassium 4.4 (3.5-5.1) mmol/L Chloride 106 (98-107) mmol/L Carbon Dioxide 27 (21-32) mmol/L Anion Gap 5 (3-11) BUN 18 (6-23) mg/dl Creatinine 0.77 (0.6-1.4) mg/dl Est Cr Clr Drug Dosing 145.8 ml/min eGFR 100.60 BUN/Creatinine Ratio 23.4 H (10-20) Glucose 174 H (70-99(Fasting)) mg/dl POC Glucose 162 H 197 H (70-99) mg/dl Calcium 9.1 (8.6-10.3) mg/dl Phosphorus 3.4 (2.5-4.9) mg/dl Magnesium 2.3 (1.7-2.4) mg/dl 02/08/25 02/08/25 02/08/25 Range/Units 20:53 16:35 15:24 WBC (4.8-10.8) K/ul RBC (4.70-6.10) M/uL Hgb (14.0-18.0) g/dL Hct (42.0-52.0) % MCV (80.0-100.0) fL MCH (25.0-34.0) pg MCHC (32.0-36.0) g/dL RDW Std Deviation (36.4-46.3) fL RDW Coeff of Antolin (11.5-14.5) % Plt Count (130-400) K/uL MPV (9.4-12.4) fL Sodium (136-145) mmol/L Potassium (3.5-5.1) mmol/L Chloride (98-107) mmol/L Carbon Dioxide (21-32) mmol/L Anion Gap (3-11) BUN (6-23) mg/dl Creatinine (0.6-1.4) mg/dl Est Cr Clr Drug Dosing ml/min eGFR BUN/Creatinine Ratio (10-20) Glucose (70-99(Fasting)) mg/dl POC Glucose 200 H 174 H 190 H (70-99) mg/dl Calcium (8.6-10.3) mg/dl Phosphorus (2.5-4.9) mg/dl Magnesium (1.7-2.4) mg/dl 02/08/25 Range/Units 11:58 WBC (4.8-10.8) K/ul RBC (4.70-6.10) M/uL Hgb (14.0-18.0) g/dL Hct (42.0-52.0) % MCV (80.0-100.0) fL MCH (25.0-34.0) pg MCHC (32.0-36.0) g/dL RDW Std Deviation (36.4-46.3) fL RDW Coeff of Antolin (11.5-14.5) % Plt Count (130-400) K/uL MPV (9.4-12.4) fL Sodium (136-145) mmol/L Potassium (3.5-5.1) mmol/L Chloride (98-107) mmol/L Carbon Dioxide (21-32) mmol/L Anion Gap (3-11) BUN (6-23) mg/dl Creatinine (0.6-1.4) mg/dl Est Cr Clr Drug Dosing ml/min eGFR BUN/Creatinine Ratio (10-20) Glucose (70-99(Fasting)) mg/dl POC Glucose 201 H (70-99) mg/dl Calcium (8.6-10.3) mg/dl Phosphorus (2.5-4.9) mg/dl Magnesium (1.7-2.4) mg/dl Medications Administered Current Inpatient Medications Acetaminophen (Acetaminophen 500 Mg Tab) 1,000 mg PO TID [facility] Stop: 03/10/25 16:42 Last Admin: 02/09/25 08:08 Dose: 1,000 mg Al Hydrox/Mg Hydrox/Simethicone (Aluminum/Magnesium Susp 30 Ml Udc) 15 ml PO Q4H PRN PRN Reason: Heartburn Stop: 03/10/25 11:23 Albuterol (Albuterol Hfa 8 Gm Inhaler) 1 puffs INH Q4H PRN PRN Reason: Shortness Of Breath Stop: 03/10/25 16:42 Albuterol (Albut/Ipratrop 3mg/0.5mg Neb 3 Ml Vial) 3 ml NEB Q6R PRN; Protocol PRN Reason: Shortness Of Breath Or Wheezing Stop: 03/10/25 18:10 Apixaban (Apixaban 2.5 Mg Tab) 2.5 mg PO Q12H [facility] Stop: 03/11/25 11:59 Ascorbic Acid (Ascorbic Acid 500 Mg Tab) 500 mg PO BIDM [facility] Stop: 03/10/25 16:59 Last Admin: 02/09/25 08:08 Dose: 500 mg Atorvastatin Calcium (Atorvastatin 40 Mg Tab) 80 mg PO QAM [facility] Stop: 03/11/25 08:59 Last Admin: 02/09/25 08:08 Dose: 80 mg Bisacodyl (Bisacodyl 10 Mg Supp) 10 mg [place] DAILY PRN PRN Reason: Constipation Stop: 03/10/25 11:23 Dextrose (Dextrose 50% 50 Ml Syringe) 25 - 50 ml IV UD PRN; Protocol PRN Reason: Hypoglycemia Protocol Stop: 03/10/25 11:23 Docusate Sodium (Docusate Sodium 100 Mg Cap) 100 mg PO BID [facility] Stop: 03/10/25 20:59 Last Admin: 02/09/25 08:08 Dose: 100 mg Fluticasone Furoate (Fluticasone Furoate 100mcg 14 Puffs/Inhaler) 1 puffs INH QAM [facility] Stop: 03/11/25 08:59 Glucagon (Glucagon For Inj 1 Mg Vial) 1 mg SQ UD PRN; Protocol PRN Reason: Hypoglycemia Protocol Stop: 03/10/25 11:23 Glucose (Glucose 40% Gel 15 Gm Tube) 15 - 30 gm PO UD PRN; Protocol PRN Reason: Hypoglycemia Protocol Stop: 03/10/25 11:23 Glucose (Glucose 10 Tab/Tube) 4 - 8 tab PO UD PRN; Protocol PRN Reason: Hypoglycemia Protocol Stop: 03/10/25 11:23 Hydromorphone HCl (Hydromorphone Inj 0.5 Mg/0.5 Ml Syr) 0.5 mg IV Q4H PRN PRN Reason: Pain or Pre PT Stop: 02/22/25 11:23 Insulin Aspart (Insulin Aspart Per Unit Charge) 0 units SC ACHS [facility] Stop: 03/10/25 11:59 Last Admin: 02/08/25 21:18 Dose: 4 units Insulin Glargine (Lantus Per Unit Charge) 15 units SC 0900 [facility] Stop: 02/09/25 11:00 Losartan Potassium (Losartan Potassium 25 Mg Tab) 25 mg PO QAM [facility] Stop: 03/11/25 08:59 Magnesium Hydroxide (Magnesium Hydroxide Susp 30 Ml Udc) 30 ml PO Q6H PRN PRN Reason: Constipation Stop: 03/10/25 11:23 Metoclopramide HCl (Metoclopramide Hcl Inj 5 Mg/Ml 2 Ml Vial) 10 mg IV Q6H PRN PRN Reason: Nausea And Vomiting Stop: 03/10/25 11:23 Miscellaneous (Carbohydrates For Hypoglycemia ) 15 - 30 gm PO UD PRN PRN Reason: Hypoglycemia Protocol Stop: 03/10/25 11:23 Miscellaneous (Remove Nicoderm Patch) 1 each N/A DAILY@0859 [facility] Stop: 03/11/25 08:58 Last Admin: 02/09/25 08:09 Dose: 1 each Miscellaneous Information (Pharmacy Glycemic Mgmt Consult) 1 each N/A UD PRN PRN Reason: Consult Stop: 03/10/25 11:23 Montelukast Sodium (Montelukast Sodium 10 Mg Tablet) 10 mg PO [facility] Stop: 03/10/25 20:59 Last Admin: 02/08/25 23:11 Dose: 10 mg Multivitamins (Multivitamin Tab) 1 tab PO QAM [facility] Stop: 03/11/25 08:59 Last Admin: 02/09/25 08:09 Dose: 1 tab Naloxone HCl (Naloxone Hcl 0.4 Mg/1 Ml Vial/Carp) 0.1 mg IV Q5M PRN PRN Reason: Oversedation/Resp Depression Stop: 03/10/25 11:23 Nicotine (Nicotine 14 Mg/24 Hr Patch) 1 patch TD QAM [facility] Stop: 03/10/25 18:44 Last Admin: 02/08/25 21:22 Dose: 1 patch Ondansetron HCl (Ondansetron Inj 2 Mg/Ml 2 Ml Vial) 4 mg IV Q6H PRN PRN Reason: Nausea And Vomiting Stop: 03/10/25 11:23 Oxycodone HCl (Oxycodone Hcl Ir 5 Mg Tab (Immediate Release)) 5 - 10 mg PO Q4H PRN PRN Reason: Pain or Pre PT Stop: 02/22/25 11:23 Sennosides (Senna 8.6 Mg Tab) 17.[address] [facility] Stop: 03/10/25 20:59 Last Admin: 02/08/25 21:17 Dose: 17.2 mg Tamsulosin HCl (Tamsulosin Hcl 0.4 Mg Cap) 0.4 mg PO DAILY [facility] Stop: 03/11/25 08:59 Last Admin: 02/09/25 08:08 Dose: 0.4 mg Umeclidinium/Vilanterol (Umeclidinium/Vilanterol 62.5/25mcg 7 Puffs/Inhaler) 1 puffs INH DAILY [facility] Stop: 03/11/25 08:59 Last Admin: 02/09/25 08:09 Dose: 1 puffs
[2025-02-09] MEDS: LANTUS PER UNIT CHARGE SC SCH (08:48)
[2025-02-09] MEDS ORDERED: EMPAGLIFLOZIN 25 MG TAB PO SCH (09:00)
[2025-02-09] MEDS ORDERED: LOSARTAN POTASSIUM 25 MG TAB PO SCH (09:00)
[2025-02-09] MEDS: ALBUT/IPRATROP 3MG/0.5MG NEB 3 ML VIAL NEB SCH (11:20)
[2025-02-09] MEDS: APIXABAN 2.5 MG TAB PO SCH (12:30)
[2025-02-09] MEDS ORDERED: Nursing to Pharmacy Communication SCH (20:45)
[2025-02-10] MEDS: HYDROmorphone INJ 0.5 MG/0.5 ML SYR IV PRN (00:35)
--- NOTE | 2025-02-10 07:29 | Orthopedic Progress Note ---
Date of Service February 10, 2025 Assessment & Plan (1) Status post left knee replacement: Plan: 64-year-old gentleman with multiple medical comorbidities postop day 2 from a left knee replacement. He is doing okay. Medically seems to be stable. Knee is a bit more sore today and a little more difficulty lifting it which is normal. He is neurologically intact. Pains controlled. Plan: 1. DVT prophylaxis including thigh-high teds, SCDs, and back on his normal dose of Eliquis. 2. PT/OT. Weight-bear as Toller. Left total knee protocol. 3. Pain control. Doing okay with current pain regimen. 4. Disposition. He is hoping to be discharged home today. Will see how therapy goes. He does have family assistance at home and he will needs home health. (2) Morbid obesity: (3) Diabetes mellitus, type 2: (4) Hx of hyperlipidemia: (5) History of hypertension: (6) Hx of deep venous thrombosis: Admission and Anticipated Discharge Date Admission Date: February 08, 2025 Subjective 64-year-old gentleman postop day 2 from a left knee replacement. He is doing okay. His knee is a bit more painful this morning. Denies any chest pain or shortness of breath. Not feeling dizzy or lightheaded. He is hoping to go home with home health. He is Family assistance. Physical Exam Physical Exam: Physical examination reveals a pleasant middle-age male. Lying in bed looks pretty comfortable this morning. Examination of the left leg reveals the dressing to be in place. Just a trace bit of drainage. He can do a straight leg raise but takes quite a bit of effort. He can dorsiflex and plantarflex his foot appropriately. He is neurologically intact. Results & Data Vital Signs (Past 12 Hours) Vital Signs Temp Pulse Pulse Resp BP Pulse Ox O2 Del Method 02/10/25 07:04 78 18 91 Room Air 02/10/25 07:01 85 02/10/25 04:15 36.6 C 87 16 132/78 90 Room Air 02/10/25 00:47 89 18 96 Room Air 02/09/25 23:04 36.6 C 92 H 20 117/67 91 Room Air 02/09/25 20:18 36.8 C 89 18 133/75 92 Room Air 02/09/25 20:00 Room Air 02/09/25 19:37 90 20 96 Room Air
--- NOTE | 2025-02-10 09:34 | Hospitalist Progress Note ---
Date of Service February 10, 2025 Assessment & Plan (1) Left knee DJD: Plan: s/p Left Total Knee Arthroplasty - tolerated procedure well pain management, DVT ppx, PT/OT per surgeon - pt started on apixaban Post-op hypoxia Hx of COPD/ asthma, hx of tobacco abuse - at home on Trelegy inh, albuterol, duonebs prn, montelukast - cont. while inpt - currently not in exacerbation, however required bipap in pacu, currently on RA saturating 92% - received duoneb post-op, cont. DAVON pt not using cpap at home - required bipap in PACU, cont. to closely monitor, recommend cpap/bipap HS Hx of DVT/PE - on Eliquis - now resumed - will defer anticoagulation to surgeon DM type 2 A1c 8.3% in July 2024 - at home on metformin, Jardiance - currently utilizing insulin while inpt, glycemic pharmacy following HTN/HLD - at home on losartan, atorvastatin - for now, hold losartan, monitor BP, re-assess daily Morbid obesity - BMI 43 - per outpt chart review, pt has been losing weight - cont. counselling and outpt follow up Admission and Anticipated Discharge Date Admission Date: February 08, 2025 Subjective Pt seen in follow up, med consult for med co-management Pt s/p left TKA, hypoxic after surgery Pt has hx of COPD, current smoker This morning sitting up in bed in NAD, currently on RA saturating 92%. Denies any abd. pain, n/v. Denies any chest pain or shortness of breath. Has some leg pain today. Review of Systems Review of Systems: All systems reviewed & are unremarkable except as noted in Subjective Physical Exam Physical Exam: Constitutional: obese M in NAD Eyes: PERRL, conjunctiva e normal, anicteri c sclerae ENMT: external ear and n ose normal Neck: supple Respiratory: normal resp. effo rt, minimal exp.wh eezing noted, on R A Cardiovascular: RRR, no murmur, no edema Chest (Breasts): Chest: normal insp ection of chest Gastrointestinal ( Abdomen): normal bowel sound s, soft, nontender Musculoskeletal: moves extremities , LLE in surg. kahlil ssings Skin: no rashes, warm an d dry Neurologic: PERRL, EOMI, no fa ce palsy, no dysar thria, moves extre mities Psychiatric: A+Ox3, euthymic af fect Results & Data Results & Data Vital Signs (Past 12 Hours) Vital Signs Temp Pulse Pulse Resp BP Pulse Ox O2 Del Method 02/10/25 08:00 Room Air 02/10/25 07:52 36.5 C 93 H 20 132/79 92 Room Air 02/10/25 07:04 78 18 91 Room Air 02/10/25 07:01 85 02/10/25 04:15 36.6 C 87 16 132/78 90 Room Air 02/10/25 00:47 89 18 96 Room Air 02/09/25 23:04 36.6 C 92 H 20 117/67 91 Room Air Medications Administered Current Inpatient Medications Acetaminophen (Acetaminophen 500 Mg Tab) 1,000 mg PO TID [facility] Stop: 03/10/25 16:42 Last Admin: 02/10/25 07:36 Dose: 1,000 mg Al Hydrox/Mg Hydrox/Simethicone (Aluminum/Magnesium Susp 30 Ml Udc) 15 ml PO Q4H PRN PRN Reason: Heartburn Stop: 03/10/25 11:23 Albuterol (Albuterol Hfa 8 Gm Inhaler) 1 puffs INH Q4H PRN PRN Reason: Shortness Of Breath Stop: 03/10/25 16:42 Albuterol (Albut/Ipratrop 3mg/0.5mg Neb 3 Ml Vial) 3 ml NEB Q6R [facility]; Protocol Stop: 03/11/25 09:59 Last Admin: 02/10/25 07:04 Dose: 3 ml Apixaban (Apixaban 2.5 Mg Tab) 2.5 mg PO Q12H [facility] Stop: 03/11/25 11:59 Last Admin: 02/10/25 07:37 Dose: 2.5 mg Ascorbic Acid (Ascorbic Acid 500 Mg Tab) 500 mg PO BIDM [facility] Stop: 03/10/25 16:59 Last Admin: 02/10/25 07:37 Dose: 500 mg Atorvastatin Calcium (Atorvastatin 40 Mg Tab) 80 mg PO QAM [facility] Stop: 03/11/25 08:59 Last Admin: 02/10/25 07:37 Dose: 80 mg Bisacodyl (Bisacodyl 10 Mg Supp) 10 mg [place] DAILY PRN PRN Reason: Constipation Stop: 03/10/25 11:23 Dextrose (Dextrose 50% 50 Ml Syringe) 25 - 50 ml IV UD PRN; Protocol PRN Reason: Hypoglycemia Protocol Stop: 03/10/25 11:23 Docusate Sodium (Docusate Sodium 100 Mg Cap) 100 mg PO BID [facility] Stop: 03/10/25 20:59 Last Admin: 02/10/25 07:36 Dose: 100 mg Fluticasone Furoate (Fluticasone Furoate 100mcg 14 Puffs/Inhaler) 1 puffs INH QAM [facility] Stop: 03/11/25 08:59 Last Admin: 02/10/25 07:38 Dose: 1 puffs Glucagon (Glucagon For Inj 1 Mg Vial) 1 mg SQ UD PRN; Protocol PRN Reason: Hypoglycemia Protocol Stop: 03/10/25 11:23 Glucose (Glucose 40% Gel 15 Gm Tube) 15 - 30 gm PO UD PRN; Protocol PRN Reason: Hypoglycemia Protocol Stop: 03/10/25 11:23 Glucose (Glucose 10 Tab/Tube) 4 - 8 tab PO UD PRN; Protocol PRN Reason: Hypoglycemia Protocol Stop: 03/10/25 11:23 Hydromorphone HCl (Hydromorphone Inj 0.5 Mg/0.5 Ml Syr) 0.5 mg IV Q4H PRN PRN Reason: Pain or Pre PT Stop: 02/22/25 11:23 Last Admin: 02/10/25 07:36 Dose: 0.5 mg Insulin Aspart (Insulin Aspart Per Unit Charge) 0 units SC ACHS [facility] Stop: 03/10/25 11:59 Last Admin: 02/10/25 08:22 Dose: 12 units Losartan Potassium (Losartan Potassium 25 Mg Tab) 25 mg PO QAM [facility] Stop: 03/11/25 08:59 Magnesium Hydroxide (Magnesium Hydroxide Susp 30 Ml Udc) 30 ml PO Q6H PRN PRN Reason: Constipation Stop: 03/10/25 11:23 Metformin HCl (Metformin Hcl 500 Mg Tab) 1,000 mg PO BIDM [facility] Stop: 03/12/25 07:59 Last Admin: 02/10/25 08:56 Dose: 1,000 mg Metoclopramide HCl (Metoclopramide Hcl Inj 5 Mg/Ml 2 Ml Vial) 10 mg IV Q6H PRN PRN Reason: Nausea And Vomiting Stop: 03/10/25 11:23 Miscellaneous (Carbohydrates For Hypoglycemia ) 15 - 30 gm PO UD PRN PRN Reason: Hypoglycemia Protocol Stop: 03/10/25 11:23 Miscellaneous (Remove Nicoderm Patch) 1 each N/A DAILY@0859 [facility] Stop: 03/11/25 08:58 Last Admin: 02/10/25 07:38 Dose: 1 each Miscellaneous Information (Pharmacy Glycemic Mgmt Consult) 1 each N/A UD PRN PRN Reason: Consult Stop: 03/10/25 11:23 Montelukast Sodium (Montelukast Sodium 10 Mg Tablet) 10 mg PO [facility] Stop: 03/10/25 20:59 Last Admin: 02/09/25 21:18 Dose: 10 mg Multivitamins (Multivitamin Tab) 1 tab PO QAM [facility] Stop: 03/11/25 08:59 Last Admin: 02/10/25 07:37 Dose: 1 tab Naloxone HCl (Naloxone Hcl 0.4 Mg/1 Ml Vial/Carp) 0.1 mg IV Q5M PRN PRN Reason: Oversedation/Resp Depression Stop: 03/10/25 11:23 Nicotine (Nicotine 14 Mg/24 Hr Patch) [facility] [place] Stop: 03/10/25 18:44 Last Admin: 02/10/25 07:37 Dose: 1 patch Ondansetron HCl (Ondansetron Inj 2 Mg/Ml 2 Ml Vial) 4 mg IV Q6H PRN PRN Reason: Nausea And Vomiting Stop: 03/10/25 11:23 Oxycodone HCl (Oxycodone Hcl Ir 5 Mg Tab (Immediate Release)) 5 - 10 mg PO Q4H PRN PRN Reason: Pain or Pre PT Stop: 02/22/25 11:23 Sennosides (Senna 8.6 Mg Tab) 17.2 mg PO [facility] Stop: 03/10/25 20:59 Last Admin: 02/09/25 21:20 Dose: 17.2 mg Tamsulosin HCl (Tamsulosin Hcl 0.4 Mg Cap) 0.4 mg PO DAILY [facility] Stop: 03/11/25 08:59 Last Admin: 02/10/25 07:37 Dose: 0.4 mg Umeclidinium/Vilanterol (Umeclidinium/Vilanterol 62.5/25mcg 7 Puffs/Inhaler) 1 puffs INH DAILY [facility] Stop: 03/11/25 08:59 Last Admin: 02/10/25 07:38 Dose: 1 puffs
--- NOTE | 2025-02-12 15:40 | Discharge Summary ---
Date of Service February 082024 Admission HPI (Per Admitting) . The patient is a 64-year-old gentleman well-known to me from a previous right knee replacement about 10 years ago. Of the right knee is doing well. Over the past 3 years she developed increased pain discomfort her left knee. Is just been kind of great and [place] and putting up with it. Started to really bother him pretty much every day. Takes oral medicines with minimal relief. He has lost some weight recently but has not really helped his knee pain. Admission Exam (Per Admitting) . Physical examination reveals a pleasant somewhat poorly Middle-age male. Examination of the knees reveal patient ambulates independently with a bit of a waddling gait. Examination of the left knee reveals varus alignment to his knee. He is tender over the medial joint line. Range of motion is near full extension to 125 degrees of flexion. There is no gross instability. He is got some venous stasis changes distally. Examination of the right knee reveals well-healed incision. Good anatomic alignment to the knee. Range of motion 0-1 25. Principal Diagnosis Same as "Discharge Diagnosis" noted below under Discharge Instructions. Discharge Data Consultations 02/08/25 15:58 Consult Hospitalist Routine Procedures Performed Operation Date: 02/08/25 08:50 Actual Procedures p Left Total Knee Arthroplasty(Left) - Cachorro Ac MD Ordered Studies 02/08/25 05:00 US - OR guided needle placemen Routine Hospital Course (1) Status post left knee replacement: 64-year-old male admitted to hospital on 02/08/2025 to undergo left total knee arthroplasty with Dr. Cachorro Ac. Surgery went well. Postoperatively he was hypoxic with O2 sats at around 92, likely due to his history of asthma/COPD and tobacco use. He was kept in hospital for observation. Patient's O2 saturation continued to hover in the low 90s. Postop day 2 was determined that this likely is normal baseline. He was discharged home with plan for home health and he will follow-up with Dr. Ac in clinic 2 weeks postop. PG Care Time/CCT Total # of Minutes Spent Total Time Spent with Patient: Total time spent is greater than 50% in coordination of care (as documented) at patient's floor/unit and/or counseling patient: Discharge Plan Discharge Items Patient Disposition: Home - Home Health Services Reason For Visit: Left Knee Osteoarthritis Discharge Diagnosis: Left Knee REplacement Activity: Per Instructions section Weightbearing: Full weightbearing Non-emergency contact: Surgeon Call non-emergency contact if: you have any medication questions Follow-up/Referrals: PCP,NO [Physician] - Diet: Carb Consistent or DM2 Addtl Attending Provider Instructions: ACTIVITY RECOMMENDATIONS: Diet: * You may resume previous diet. Physical Therapy: * You will go to physical therapy three times each week for four to six weeks after your surgery in order to regain your knee range of motion and to retrain your knee to work properly. * It is just as important to make sure you are getting your knee perfectly straight as it is to regain your knee bend. * Taking a pain pill an hour before therapy can help you have a more productive and comfortable therapy session. Home Exercise: * You were shown a series of exercises (heel props, heel slides, etc.) in the hospital. Do these exercises three to four times each day including the exercises you were shown in physical therapy. Walking: * Get up and walk several times each day. For the first four weeks, try not to stand or walk for more than one hour at a time. If you do stand or walk for more than one hour, you will not hurt anything, but your knee and leg will likely swell. * As you feel comfortable, you may change from the walker or crutches to a cane and then to independent walking. MEDICATIONS: New Medicine: * You will likely be taking one or more of these medications: 1. Oxycodone - A quick and shorter-acting pain medication. Take one to two tablets every six hours to lessen your pain. 2. Eliquis - Thins your blood to lessen the chance of forming a blood clot. * The most common side effects of pain medicine and iron are nausea and constipation. If nausea or constipation is too much of a problem or if you have any questions about your new medicines or doses, call [facility] at . We will try to help you manage these issues. "VERY IMPORTANT TO READ AND REVIEW" Pain: * The immediate post-operative period after knee replacement surgery is often quite painful. * You are given a prescription for pain medicine. You should take it, as directed, when you need it, especially before physical therapy and before going to bed. Pain that interferes with sleep is very common and can last several months. * You will likely need pain medicine for the first four to six weeks. It will not stop all of the pain. The pain will lessen and as you feel better, you may change to milder pain medicine such as Tylenol. * The most common side effects of pain medicine are nausea and constipation, so don't take more than you need. SPECIAL CARE INSTRUCTIONS: TEDs/Elastic Stockings: * The white elastic stockings help limit swelling and prevent blood clots from forming in your legs. The more you wear them, the more they work. * Wear them for six weeks after knee replacement surgery and four weeks after partial knee replacement. Incision Site Care: * Remove dressing postoperative day 2 and then shower. Keep direct shower pressure off the incision site. * After showering, cover rossy with dry gauze and change daily or more frequently if the dressing is getting saturated with drainage. * Use the JAVIER stockings to hold dressing in place. DO NOT apply tape on the skin. * May completely stop using bandage if wound is dry and no drainage * [place] are removed between 2 and 3 weeks post-op. If your follow-up appointment is made before 2 weeks, please have your appointment re- scheduled. It is too early to remove the rossy. Prevention of Infection: * Take antibiotics one hour before any dental cleaning, dental work, urological procedure, gastrointestinal procedure or any invasive surgery in order to prevent your new joint from getting infected. * You may get the antibiotics from the doctor performing the procedure or you may call our office at [phone] before and we will call in a prescription to the pharmacy of your choice. Things to Watch For: * Drainage from the incision site that occurs more than one week after your surgery. * Severely increased knee/leg pain or swelling. * Increased redness at the incision site. * Fever above 102 degrees Fahrenheit. * Unusual chest pain or shortness of breath. * Unusual pain or burning with urination. Call [facility] at [phone] with any of the above problems or if you have any questions about your medicines or recovery. FOLLOW UP VISIT: Make an appointment to see your doctor for approximately two weeks after surgery for a progress check and staple removal by calling the office at [phone]. Pending Studies at Discharge: No Stand-Alone Forms: My [facility], Smoking Cessation Medications and DC Order Prescriptions: Continued oxycodone 5 mg tablet 5 - 10 mg PO Q6 PRN (Reason: pain) Qty: 40 0RF Rx Instructions: Take as needed for pain ondansetron 4 mg tablet,disintegrating 4 mg PO Q8 PRN (Reason: nausea) Qty: 20 1RF Rx Instructions: Take as needed for nausea sennosides [Senokot] 8.6 mg tablet 8.6 mg PO BID 14 Days Qty: 28 0RF Rx Instructions: Take two times a day to prevent/treat constipation acetaminophen [Tylenol Extra Strength] 500 mg tablet 1,000 mg PO TID 30 Days Qty: 180 0RF Rx Instructions: Take 3 times per day to lessen pain. tamsulosin 0.4 mg capsule 0.4 mg PO DAILY Qty: 7 0RF Patient Comments: patient didn't realize he was to start the day prior to surgery; Rx Instructions: Begin night BEFORE surgery to prevent urinary retention metformin 500 mg tablet 1,000 mg PO BID atorvastatin 80 mg tablet 80 mg PO QAM losartan 25 mg tablet 25 mg PO QAM montelukast 10 mg tablet 10 mg PO HS albuterol sulfate 90 mcg/actuation HFA aerosol inhaler 1 puff INHALATION UD PRN (Reason: Shortness Of Breath) Eliquis 5 mg tablet 5 mg PO BID Jardiance 25 mg tablet 25 mg PO QAM Trelegy Ellipta 100-62.5-25 mcg blister with device 1 inh INHALATION QAM Admission Data Admit Date/Time: 02/08/25 11:21 Attending Provider: Cachorro Ac Admit Provider: Cachorro Ac Primary Care Provider: Nigel Licona Other Providers: Esther Mercado; Alma Fields I.; Yuli Cruz; Tere Champagne; Nadia Ham; Camilla Diez; Kari Ac; Lucho Beyer; Paxton Feliciano; Cody Askew; Yaya King; Haseeb Jo; Andrea Greenwood; Ciera Hdez; Milly Marinelli; Lia Dunn; Ifeanyi Chairez; Leeann Vargas I.; Vladislav Suarez; Porfirio Barillas; Laith Caballero; Josiah Foster; Ck Rand; Pilar Mir; Allie Hoffman; Herb Gutierrez; Moi Kraus; Ly Dubon; Vladislav Fatima; Nacho Sood; Bárbara Villa; Mercedes Clancy; Mercedes Bhatia; Juanito Ennis; [facility] Other Interventions: Discharge Summary Assessment (RN) Last Done: 02/10/25 12:29 Supervising Physician Co-Signing Physician Notes Cachorro Ac MD
== END 2025-02-10 14:29 | disposition home health service (06) ==
LOC: 2S 07:02 → ASU 07:02